=== PATIENT | male | born 1955 | race Hispanic/Latino ===

== ENCOUNTER 2022-06-16 08:06 | Emergency (ER) | payer BC ==
[2022-06-16 08:23] VITALS: BP 135/96
[2022-06-16 12:04] LABS: Alanine Aminotransferase 11 units/L (7-56); Albumin 4.5 g/dL (3.9-5); BUN/Creatinine Ratio 16; Blood Urea Nitrogen 14 mg/dL (9-20); Hemolysis Index 158
[2022-06-16 12:20] LABS: Color,Urine Yellow (Yellow)
[2022-06-16 12:22] LABS: Mucus,Urine FEW /HPF
[2022-06-16] MEDS ORDERED: SODIUM CHLORIDE 0.9% 1000 ML 1,000 ML IV ONE (12:37)
[2022-06-16] MEDS ORDERED: ONDANSETRON 4 MG/2 ML INJ IV ONE (12:37)
--- NOTE | 2022-06-16 12:45 | Emergency Department Report ---
ED General Adult HPI - General Chief complaint: Nausea/Vomiting/Diarrhea Stated complaint: STOMACH PAIN Time Seen by Provider: 06/16/22 10:52 Source: patient Mode of arrival: Ambulatory Limitations: No Limitations - History of Present Illness Initial comments: 66 YO COMES TO ER WITH 3 DAY HX DIARRHEA. NOT BLOODY. JUST LOOSE. NO FEVER. NO CHILLS. NO ABD PAIN. NO N/V. AMBULATORY AND IN NAD IN ER HAS NOT SEEN PCP HAS NO SICK CONTACTS Severity scale (0 -10): 0 Associated Symptoms: denies other symptoms Treatments Prior to Arrival: none - Related Data Allergies Allergy/AdvReac Type Severity Reaction Status Date / Time No Known Allergies Allergy Verified 06/16/22 08:23 ED Review of Systems ROS: Stated complaint: STOMACH PAIN Other details as noted in HPI Comment: All other systems reviewed and negative ED Past Medical Hx - Past Medical History Previous Medical History?: Yes Additional medical history: "broken back" - Surgical History Past Surgical History?: No - Family History Family history: no significant - Social History Smoking Status: Never Smoker Substance Use Type: Alcohol ED Physical Exam - General Limitations: No Limitations General appearance: alert, in no apparent distress - Head Head exam: Present: atraumatic, normocephalic - Eye Eye exam: Present: normal appearance - ENT ENT exam: Present: mucous membranes moist - Neck Neck exam: Present: normal inspection - Respiratory Respiratory exam: Present: normal lung sounds bilaterally. Absent: respiratory distress - Cardiovascular Cardiovascular Exam: Present: regular rate, normal rhythm. Absent: systolic murmur, diastolic murmur, rubs, gallop - GI/Abdominal GI/Abdominal exam: Present: soft, normal bowel sounds - Rectal Rectal exam: Present: deferred - Extremities Exam Extremities exam: Present: normal inspection - Back Exam Back exam: Present: normal inspection - Neurological Exam Neurological exam: Present: alert, oriented X3 - Psychiatric Psychiatric exam: Present: normal affect, normal mood - Skin Skin exam: Present: warm, dry, intact, normal color. Absent: rash ED Course Vital Signs 06/16/22 08:22 Temperature 98.6 F Pulse Rate 86 Respiratory 16 Rate Blood Pressure 135/96 [Left] O2 Sat by Pulse 99 Oximetry ED Medical Decision Making - Lab Data Result diagrams: 06/16/22 11:10 - Medical Decision Making Labs 06/16/22 06/16/22 11:10 11:45 Sodium 136 L Potassium 5.3 H Chloride 102.1 Carbon Dioxide 19 L Anion Gap 20 BUN 14 Creatinine 0.9 Estimated GFR > 60 BUN/Creatinine Ratio 16 Glucose 88 Calcium 9.0 Total Bilirubin 0.50 AST 24 ALT 11 Alkaline Phosphatase 80 Total Protein 7.6 Albumin 4.5 Albumin/Globulin Ratio 1.5 Lipase 20 Urine Color Yellow Urine Turbidity Clear Specific [place] (Man) 1.017 Ur Protein (Man) Negative Ur Ketones (Man) Negative Ur Nitrite (Man) Negative Urine Bilirubin (Man) Negative Urine Ictotest Not Reportable Leukocyte Esterase (Man) Negative Urine WBC (Auto) 1.0 Urine RBC (Auto) 2.0 U Epithel Cells (Auto) < 1.0 Urine RBC (Manual) Negative Urine Mucus Few Vital Signs 06/16/22 08:22 Temperature 98.6 F Pulse Rate 86 Respiratory 16 Rate Blood Pressure 135/96 [Left] O2 Sat by Pulse 99 Oximetry LABS NOTED 1L NS/ZOFRAN GIVEN IN ER PT AMBULATORY TAKING PO UA NORMAL LABS NOTED CBC HAS BEEN FOR CLOSE TO 7 HOURS. PT DOES NOT WANT TO WAIT. HE HAS NO TACHYCARDIA/HYPOTENSION NO FEVER HE HAS HAD NO FURTHER DIARRHEA IN ER DC HOME WITH DC PLAN OF CARE INCLUDING DIET, FOLLOW UP, MEDS AND ACTIVITY. HE HAS BEEN GIVEN REFERRAL TO GI AND PCP. - Differential Diagnosis VIRAL/FOOD RELATED ILLNESS Critical care attestation.: If time is entered above; I have spent that time in minutes in the direct care of this critically ill patient, excluding procedure time. ED Disposition Clinical Impression: Diarrhea Disposition: 01 HOME / SELF CARE / HOMELESS Is pt being admited?: No Does the pt Need Aspirin: No Condition: Stable Instructions: Diarrhea, Adult, [id number] Additional Instructions: SEE ATTACHED INFO ON DIARRHEA OVER THE COUNTER LOMOTIL NEEDED SEE BOX FOR INSTRUCTIONS DRINK A LOT OF WATER AVOID SPICY FOOD AND ALCOHOL FOLLOW UP WITH PCP AND GI REFERRALS BELOW Referrals: LEONOR ALAS MD [Staff Physician] - 3-5 Days HARLEEN MOCTEZUMA MD [Staff Physician] - 3-5 Days Time of Disposition: 15:20
== END 2022-06-16 15:21 | disposition home or self-care (01) ==
LOC: ED 08:06
DX: R19.7 Diarrhea, unspecified (principal); Z72.89 Other problems related to lifestyle; Z79.899 Other long term (current) drug therapy
CPT/HCPCS: 80053; 81001; 83690; 96361; 96374; 99283; J2405; J7030